=== PATIENT | female | born 1990 | race Hispanic/Latino ===

== ENCOUNTER 2020-06-15 00:59 | Emergency (ER) | payer SELFPAY ==
[~2020-06-15] VITALS: Ht 167.6 cm; Wt 68.0 kg
[2020-06-15] MEDS ORDERED: DOXYCYCLINE HY100 MG PO (01:09)
[2020-06-15] MEDS ORDERED: FENTANYL CITRATE/PF 100MCG/2 ML INJ IV ONE (01:15)
[2020-06-15] MEDS ORDERED: LIDOCAINE HCL 1% LOCAL INJ 20 ML VIAL INJ ONE (01:15)
[2020-06-15] MEDS ORDERED: ULTRAM50 MG PO (02:02)
== END 2020-06-15 02:02 | disposition home or self-care (01) ==
LOC: ER 01:09
DX: L02.215 Cutaneous abscess of perineum (principal)
CPT/HCPCS: 10061; 99283; J2001; J3010

== ENCOUNTER 2020-07-29 15:53 | Emergency (ER) | payer OTHER ==
[~2020-07-29] VITALS: Ht 167.6 cm; Wt 72.6 kg
[~2020-07-29 15:53] MED LIST: DOXYCYCLINE HY100 MG PO; ULTRAM50 MG PO
== END 2020-07-29 17:04 | disposition home or self-care (01) ==
LOC: ER 16:15
DX: M25.562 Pain in left knee (principal); M25.561 Pain in right knee; E11.9 Type 2 diabetes mellitus without complications; R07.89 Other chest pain; Z33.1 Pregnant state, incidental
CPT/HCPCS: 71045; 73020; 99283

== ENCOUNTER 2024-08-02 16:08 | Emergency (ER) | payer BC ==
[~2024-08-02] VITALS: Ht 167.6 cm; Wt 112.5 kg
[~2024-08-02 16:08] MED LIST changes: +BACTRIM DS TAB1 EACH PO; +KETOROLAC TROME10 MG PO; +MUPIROCIN22 GM TOP
[2024-08-02 16:18] VITALS: PULSE 96; RESP 20; TEMP 97.6
[2024-08-02] MEDS: ONDANSETRON HCL INJ 2MG/ML 2ML 2 MG/ML VIAL IV ONE (16:37)
[2024-08-02] MEDS: LACTATED RINGER'S 1,000 ML INJ ONE (16:38)
[2024-08-02] MEDS: DEXTROSE 50% SYRINGE 50 ML IV ONE (17:03)
[2024-08-02] MEDS ORDERED: MAALOX MAXIMUM355 ML PO (17:47)
[2024-08-02] MEDS ORDERED: ONDANSETRON ODT4 MG PO (17:47)
[2024-08-02] MEDS ORDERED: OMEPRAZOLE40 MG PO (17:47)
[2024-08-02] MEDS ORDERED: CEFDINIR300 MG PO (17:51)
[2024-08-02 18:02] VITALS: BP 163/80; PULSE 90; RESP 18; O2SAT 100
== END 2024-08-02 19:30 | disposition home or self-care (01) ==
LOC: FSED 16:12
DX: K92.0 Hematemesis (principal); K29.70 Gastritis, unspecified, without bleeding; N39.0 Urinary tract infection, site not specified; R10.9 Unspecified abdominal pain; I10 Essential (primary) hypertension; E11.9 Type 2 diabetes mellitus without complications
CPT/HCPCS: 36415; 74176; 80053; 80076; 82948; 85025; 87086; 87186; 99283; J0696; J2405; J2470; J7121; J7799

== ENCOUNTER 2024-12-22 16:51 | Emergency (ER) | payer BC ==
[~2024-12-22] VITALS: Ht 167.6 cm; Wt 106.7 kg
[~2024-12-22 16:51] MED LIST changes: +CEFDINIR300 MG PO; +MAALOX MAXIMUM355 ML PO; +OMEPRAZOLE40 MG PO; +ONDANSETRON ODT4 MG PO
[2024-12-22] MEDS ORDERED: METFORMIN HCL500 M2 PO (17:04)
[2024-12-22] MEDS ORDERED: TOUJEO MAX300 UNIT/1 SQ (17:04)
[2024-12-22] MEDS ORDERED: MOUNJARO2.5 MG/0.5 (17:04)
[2024-12-22] MEDS ORDERED: IBUPROFEN600 MG PO (17:15)
[2024-12-22] MEDS ORDERED: DOXYCYCLINE HY100 MG PO (17:15)
[2024-12-22] MEDS: ONDANSETRON HCL 4 MG ORAL DISINTEGRATING TAB PO ONE (17:36)
[2024-12-22] MEDS: LIDOCAINE HCL 2% LOCAL 20 ML VIAL INJ STA (17:36)
[2024-12-22] MEDS: IBUPROFEN 600 MG TAB PO ONE (17:44)
[2024-12-22] MEDS: ACETAMINOPHEN 325 MG TAB PO ONE (17:45)
[2024-12-22] MEDS: DOXYCYCLINE HYCLATE TABLET 100 MG TAB PO STA (17:45)
[2024-12-22 18:44] VITALS: PULSE 90; RESP 16; TEMP 98.6; O2SAT 98
== END 2024-12-22 18:44 | disposition home or self-care (01) ==
LOC: FSED 16:56
DX: L02.818 Cutaneous abscess of other sites (principal); L73.2 Hidradenitis suppurativa; L73.9 Follicular disorder, unspecified; I10 Essential (primary) hypertension; E11.9 Type 2 diabetes mellitus without complications
CPT/HCPCS: 10060; 96372; 99284; J2003; Q0162